=== PATIENT | female | born 1955 | race African-American/Black ===

== ENCOUNTER 2021-05-29 13:44 | Inpatient (IN) | payer MEDICARE, MEDICAID ==
[~2021-05-29] VITALS: Ht 172.7 cm; Wt 68.4 kg
[2021-05-29] MEDS ORDERED: ASPirin 81 mg TAB PO ONE (14:15)
[2021-05-29] MEDS ORDERED: NITROGLYCERIN 0.4 MG SL TAB SL ONE (14:15)
[2021-05-29 14:34] LABS: Basophils # (auto) 0.1 10 ^3/uL (0-0.2); Eosinophils # (auto) 0.2 10 ^3/uL (0-0.8); Eosinophils % (auto) 1.8 % (0.0-7.0); Hemoglobin 13.8 g/dL (12.2-16.2); Mean Corpuscular Hgb Conc. 33.4 g/dL (32.0-36.0); Monocytes # (auto) 0.9 10 ^3/uL (0-1.3); Nucleated Red Blood Cells % 0.2 %; White Blood Cell 9.4 10^3/uL (4.4-10.8)
[2021-05-29 14:36] LABS: Basophils % (auto) 1.2 % (0.0-2.0); Hematocrit 41.4 % (36.0-46.0); Lymphocytes # (auto) 3.2 10 ^3/uL (0.4-5.4); Lymphocytes % (auto) 33.9 % (10.0-50.0); Mean Corpuscular Hemoglobin 34.3 pg (28.0-32.0); Mean Corpuscular Volume 102.6 fL (80.0-100.0); Monocytes % (auto) 9.8 % (0.0-12.0); Neutrophils % (auto) 53.3 % (37.0-80.0); Red Blood Cells 4.03 10^6/uL (4.0-5.20)
[2021-05-29] MEDS ORDERED: SUCCINYLCHOLINE CHLORIDE 20 MG/ML 10ML VIAL IV ONE (14:51)
[2021-05-29] MEDS ORDERED: ETOMIDATE (2MG/ML) 20ML VIAL IV ONE (14:51)
[2021-05-29 14:52] LABS: Potassium 3.3 mmol/L (3.5-5.1)
[2021-05-29] MEDS ORDERED: MIDAZOLAM DRIP 50 mg/50mL 50 ML IV ONE ×3 (14:52→17:51)
[2021-05-29 14:59] LABS: Albumin 3.3 g/dL (3.4-5.0); Bilirubin, Total 0.2 mg/dL (0.2-1.0); Calcium 8.9 mg/dL (8.5-10.1); Total Protein 8.4 g/dL (6.4-8.2)
[2021-05-29 15:00] LABS: INR 1.01 (0.9-1.15); Partial Thromboplastin Time 29.7 sec (23.6-33.0)
[2021-05-29] MEDS ORDERED: AMIODARONE 450mg/250ml AE 250 ML IV ONE (15:04)
[2021-05-29] MEDS ORDERED: SODIUM BICARBONATE 8.4% INJ 50ML SYRINGE ONE (15:16)
[2021-05-29] MEDS ORDERED: SODIUM BICARBONATE 50ML VIAL 100 ML in D5W 5% 1,000 ML IV ONE (15:30)
[2021-05-29] MEDS ORDERED: EPINEPHrine HCL 250 ML IV SCH (15:30)
[2021-05-29] MEDS: PROPOFOL 100 ML IV SCH (16:15)
[2021-05-29] MEDS ORDERED: AMIODARONE 450mg/250ml AE 250 ML IV SCH ×2 (16:30→22:30)
[2021-05-29] MEDS ORDERED: cefTRIAXone 1GM/50ML D5W 50 ML IV ONE (17:15)
[2021-05-29] MEDS ORDERED: AZITHROMYCIN 500MG/ 250ML 250 ML IV ONE (17:15)
[2021-05-29 17:23] LABS: Urine Bacteria NONE SEEN /hpf (None Seen); Urine Blood 1+ /uL (Negative); Urine Specific Gravity 1.008 (1.001-1.035); Urine WBC 4 /hpf (0 - 5)
[2021-05-29] MEDS ORDERED: MORPHINE SULFATE INJECTION 2 MG/ML SYRG IV PRN ×3 (17:30→20:15)
[2021-05-29] MEDS ORDERED: NITROGLYCERIN 0.4 MG SL TAB SL PRN ×2 (17:30→20:15)
[2021-05-29 17:48] VITALS: BP 148/89
[2021-05-29] MEDS: MIDAZOLAM DRIP 50 mg/50mL 50 ML IV SCH (18:26)
[2021-05-29 19:09] LABS: Lactic Acid w/Reflex 6.5 mmol/L (0.4-2.0)
[2021-05-29] MEDS ORDERED: ENOXAPARIN SOD 80 MG/0.8ML SYRINGE SC ONE (19:45)
[2021-05-29] MEDS ORDERED: POTASSIUM CHL 20MEQ/100ML 100 ML IV ONE (20:00)
[2021-05-29] MEDS ORDERED: MAGNESIUM SULFATE 1GM/100ML 100 ML IV ONE (20:00)
[2021-05-29 20:02] LABS: Amphetamine Screen, Urine NEGATIVE (NEGATIVE); Barbiturate Scree,Urine NEGATIVE (NEGATIVE); Benzodiazephine Screen, Urine POSITIVE (NEGATIVE); Cannabinoid Screen, Urine NEGATIVE (NEGATIVE); Cocaine Screen, Urine NEGATIVE (NEGATIVE); Phencyclidine Screen, Urine NEGATIVE (NEGATIVE)
[2021-05-29 20:09] LABS: Opiate Scree,Urine NEGATIVE (NEGATIVE)
[2021-05-29] MEDS ORDERED: hydrALAZINE HCL 20 MG/ML VL IV PRN (20:15)
[2021-05-29] MEDS ORDERED: LORazepam 0.5 MG TAB PO PRN (20:15)
[2021-05-29] MEDS ORDERED: METOCLOPRAMIDE HCL 5MG/ml INJ 2ml VIAL IV PRN (20:15)
[2021-05-29] MEDS ORDERED: DOCUSATE SOD 100 MG CAP PO PRN (20:15)
[2021-05-29] MEDS ORDERED: D5W/SOD CHLO 0.9% 1,000 ML IV SCH (20:15)
[2021-05-29] MEDS ORDERED: VANCOMYCIN PER PHARMACY 0 MG IV SCH (20:15)
[2021-05-29] MEDS ORDERED: HYDROcodone-ACET 5/325MG TAB PO PRN (20:15)
[2021-05-29] MEDS ORDERED: ALUM & MAG HYDROX-SIMETH LIQ(MAALOX) 30 ML PO PRN (20:15)
[2021-05-29] MEDS ORDERED: PIPERACILLIN-TAZOB 3.375GM 100 ML IV ONE (20:45)
[2021-05-29] MEDS ORDERED: VANCOMYCIN 1GM/250ML 250 ML IV SCH (21:00)
[2021-05-29] MEDS ORDERED: IPRATROPIUM BROM 0.5 MG/2.5ML INH SOL NEB PRN (21:15)
[2021-05-29 21:32] VITALS: BP 163/101
[2021-05-29] MEDS ORDERED: IPRATROPIUM BROM 0.5 MG/2.5ML INH SOL NEB SCH (22:00)
[2021-05-29] MEDS ORDERED: ALBUTEROL SULF 2.5 MG/0.5ML(0.5%) NEB SOLN NEB SCH (22:00)
[2021-05-29] MEDS: fentaNYL Drip 2500mCg/250mlNS 250 ML IV SCH (22:07)
[2021-05-29] MEDS: VANCOMYCIN 1GM/250ML 250 ML IV SCH (22:24)
[2021-05-29] MEDS: methylPREDNISolone SOD SUCC 40 MG/ML VL IV SCH (22:25)
[2021-05-29 23:17] VITALS: BP 163/101
[2021-05-29 23:58] VITALS: BP 139/84
[2021-05-30] VITALS (79 sets, daily range): BP systolic 83–155; BP diastolic 53–96
[2021-05-30] MEDS: methylPREDNISolone SOD SUCC 40 MG/ML VL IV SCH (06:09)
[2021-05-30] MEDS: PIPERACILLIN-TAZOB 3.375GM 100 ML IV SCH ×3 (06:09→17:53)
[2021-05-30 09:02] LABS: Basophils # (auto) 0 10 ^3/uL (0-0.2); Eosinophils # (auto) 0 10 ^3/uL (0-0.8); Mean Corpuscular Volume 102.1 fL (80.0-100.0); Nucleated Red Blood Cells % 0.2 %
[2021-05-30 09:03] LABS: Basophils % (auto) 0.2 % (0.0-2.0); Hematocrit 35.2 % (36.0-46.0); Hemoglobin 11.8 g/dL (12.2-16.2); Lymphocytes # (auto) 0.8 10 ^3/uL (0.4-5.4); Lymphocytes % (auto) 4.4 % (10.0-50.0); Mean Corpuscular Hemoglobin 34.2 pg (28.0-32.0); Mean Corpuscular Hgb Conc. 33.5 g/dL (32.0-36.0); Monocytes # (auto) 0.4 10 ^3/uL (0-1.3); Monocytes % (auto) 2.2 % (0.0-12.0); Neutrophils % (auto) 93.2 % (37.0-80.0); Red Blood Cells 3.45 10^6/uL (4.0-5.20); Red Cell Distribution Width 14.1 % (11.8-14.3); White Blood Cell 19.3 10^3/uL (4.4-10.8)
[2021-05-30 09:17] LABS: Albumin 2.1 g/dL (3.4-5.0); Calcium 7.3 mg/dL (8.5-10.1); Magnesium 2.3 mg/dL (1.6-2.6); Potassium 4.2 mmol/L (3.5-5.1); Uric Acid 3.7 mg/dL (2.6-6.0)
[2021-05-30 09:22] LABS: BUN/Creatinine Ratio 12.3; Bilirubin, Total 0.5 mg/dL (0.2-1.0); Phosphorus 2.5 mg/dL (2.5-4.90); Total Protein 5.8 g/dL (6.4-8.2)
[2021-05-30 09:29] LABS: CRP High Sensitivity 3.07 mg/dL (< 0.3)
[2021-05-30 09:46] LABS: INR 1.11 (0.9-1.15)
[2021-05-30] MEDS: VANCOMYCIN 1GM/250ML 250 ML IV SCH (09:47)
[2021-05-30] MEDS: ENOXAPARIN SOD 80 MG/0.8ML SYRINGE SC SCH ×2 (09:47→22:40)
[2021-05-30] MEDS: CLOPIDOGREL 300 MG TAB PO ONE ×2 (09:47→11:36)
[2021-05-30] MEDS: NOREPINEPHRINE 8 MG/250ML KIT 250 ML IV SCH (11:07)
[2021-05-30] MEDS: MIDAZOLAM DRIP 50 mg/50mL 50 ML IV SCH (11:08)
[2021-05-30 11:31] LABS: Free T3 1.96 pg/mL (2.3-4.2); Free T4 (Free Thyroxine) 0.81 ng/dL (0.89-1.76)
[2021-05-30] MEDS: fentaNYL Drip 2500mCg/250mlNS 250 ML IV SCH (14:00)
[2021-05-30] MEDS ORDERED: THIAMINE 100mg/ml INJ (200mg/2ml VIAL) IV ONE (15:00)
[2021-05-30] MEDS ORDERED: FOLIC ACID 1 MG in D5W 5% 50 ML INJ ONE (15:00)
[2021-05-30] MEDS ORDERED: PANTOPRAZOLE 40 MG/10 ML VIAL INJ IV ONE (15:00)
[2021-05-30] MEDS: PROPOFOL 100 ML IV SCH (16:15)
[2021-05-30] MEDS ORDERED: SODIUM BICARBONATE 8.4% INJ 50ML SYRINGE IV ONE (21:46)
[2021-05-30] MEDS ORDERED: AMIODARONE HCL (50 MG/ ML) 3 ML VIAL IV ONE (21:46)
[2021-05-30] MEDS ORDERED: EPINEPHrine HCL 1 MG/10 ML SYRG IV ONE (21:46)
[2021-05-30] MEDS: ATORVASTATIN 20 MG TAB PO SCH (22:40)
[2021-05-31] VITALS (93 sets, daily range): BP systolic 96–191; BP diastolic 43–110
[2021-05-31] MEDS: PIPERACILLIN-TAZOB 3.375GM 100 ML IV SCH ×5 (06:00→23:38)
[2021-05-31 07:11] LABS: Basophils # (auto) 0 10 ^3/uL (0-0.2); Basophils % (auto) 0.2 % (0.0-2.0); Eosinophils # (auto) 0 10 ^3/uL (0-0.8); Lymphocytes # (auto) 1.1 10 ^3/uL (0.4-5.4); Neutrophils # (auto) 17.4 10 ^3/uL (1.6-8.6); White Blood Cell 19.5 10^3/uL (4.4-10.8)
[2021-05-31 07:14] LABS: Hematocrit 34.2 % (36.0-46.0); Hemoglobin 11.4 g/dL (12.2-16.2); Lymphocytes % (auto) 5.9 % (10.0-50.0); Mean Corpuscular Hemoglobin 34.5 pg (28.0-32.0); Mean Corpuscular Hgb Conc. 33.4 g/dL (32.0-36.0); Mean Corpuscular Volume 103.2 fL (80.0-100.0); Monocytes % (auto) 4.9 % (0.0-12.0); Red Blood Cells 3.32 10^6/uL (4.0-5.20); Red Cell Distribution Width 13.9 % (11.8-14.3)
[2021-05-31 07:25] LABS: BUN/Creatinine Ratio 16.2; Calcium 7.6 mg/dL (8.5-10.1); Potassium 3.5 mmol/L (3.5-5.1)
[2021-05-31 07:47] LABS: INR 1.04 (0.9-1.15); Partial Thromboplastin Time 35.9 sec (23.6-33.0)
[2021-05-31] MEDS: NOREPINEPHRINE 8 MG/250ML KIT 250 ML IV SCH (08:15)
[2021-05-31] MEDS: ENOXAPARIN SOD 80 MG/0.8ML SYRINGE SC SCH ×2 (10:00→22:04)
[2021-05-31] MEDS: FOLIC ACID 1 MG in D5W 5% 50 ML INJ SCH (10:20)
[2021-05-31] MEDS: PANTOPRAZOLE 40 MG/10 ML VIAL INJ IV SCH (10:20)
[2021-05-31] MEDS: CLOPIDOGREL BISULFATE 75 MG TAB PO SCH (10:20)
[2021-05-31] MEDS: THIAMINE 100mg/ml INJ (200mg/2ml VIAL) IV SCH (10:56)
[2021-05-31] MEDS: MIDAZOLAM DRIP 50 mg/50mL 50 ML IV SCH (13:45)
[2021-05-31] MEDS ORDERED: IODIXANOL 320MG/ML 100ML BTL IV ONE (13:46)
[2021-05-31] MEDS ORDERED: LIDOCAINE 2%HCL (LOCAL ANESTH.) INJ 20ML MDV ONE (13:46)
[2021-05-31] MEDS ORDERED: VERAPAMIL 2.5MG/ML INJ 2ML VIAL IV ONE (14:20)
[2021-05-31] MEDS ORDERED: HEPARIN SODIUM (PORCINE) 5000 UNITS/ML 1ML VIAL ONE (14:21)
[2021-05-31] MEDS: PROPOFOL 100 ML IV SCH (16:15)
[2021-05-31] MEDS: fentaNYL Drip 2500mCg/250mlNS 250 ML IV SCH ×2 (16:15→22:46)
[2021-05-31] MEDS: FUROSEMIDE 40 MG/4 ML VIAL IV SCH (17:29)
[2021-05-31] MEDS: chlordiazePOXIDE HCL 25 MG CAP PO SCH (17:29)
[2021-05-31] MEDS: ACETAMINOPHEN 325 MG TAB PO PRN (22:01)
[2021-05-31] MEDS: ATORVASTATIN 20 MG TAB PO SCH (22:02)
[2021-06-01] VITALS (83 sets, daily range): BP systolic 96–158; BP diastolic 55–123
[2021-06-01] MEDS: chlordiazePOXIDE HCL 25 MG CAP PO SCH ×4 (00:19→21:11)
[2021-06-01] MEDS: MIDAZOLAM DRIP 50 mg/50mL 50 ML IV SCH ×3 (01:06→21:53)
[2021-06-01 04:43] LABS: Basophils # (auto) 0.1 10 ^3/uL (0-0.2); Basophils % (auto) 0.6 % (0.0-2.0); Eosinophils # (auto) 0 10 ^3/uL (0-0.8); Eosinophils % (auto) 0.4 % (0.0-7.0); Hematocrit 32.6 % (36.0-46.0); Hemoglobin 11.1 g/dL (12.2-16.2); Lymphocytes # (auto) 1.6 10 ^3/uL (0.4-5.4); Lymphocytes % (auto) 14.1 % (10.0-50.0); Mean Corpuscular Hemoglobin 33.9 pg (28.0-32.0); Mean Corpuscular Hgb Conc. 33.9 g/dL (32.0-36.0); Mean Corpuscular Volume 99.9 fL (80.0-100.0); Monocytes # (auto) 0.5 10 ^3/uL (0-1.3); Monocytes % (auto) 4.4 % (0.0-12.0); Neutrophils # (auto) 9.3 10 ^3/uL (1.6-8.6); Neutrophils % (auto) 80.5 % (37.0-80.0); Nucleated Red Blood Cells % 0.2 %; Red Blood Cells 3.26 10^6/uL (4.0-5.20); Red Cell Distribution Width 13.6 % (11.8-14.3); White Blood Cell 11.6 10^3/uL (4.4-10.8)
[2021-06-01 04:49] LABS: Calcium 7.6 mg/dL (8.5-10.1)
[2021-06-01] MEDS: FUROSEMIDE 40 MG/4 ML VIAL IV SCH ×2 (05:33→21:28)
[2021-06-01] MEDS: PIPERACILLIN-TAZOB 3.375GM 100 ML IV SCH ×3 (05:33→21:10)
[2021-06-01] MEDS: NOREPINEPHRINE 8 MG/250ML KIT 250 ML IV SCH (08:15)
[2021-06-01] MEDS: POTASSIUM CHL 20MEQ/100ML 100 ML IV SCH ×2 (08:54→11:25)
[2021-06-01] MEDS: PANTOPRAZOLE 40 MG/10 ML VIAL INJ IV SCH (08:55)
[2021-06-01] MEDS: ENOXAPARIN SOD 80 MG/0.8ML SYRINGE SC SCH (08:55)
[2021-06-01] MEDS: THIAMINE 100mg/ml INJ (200mg/2ml VIAL) IV SCH (08:56)
[2021-06-01] MEDS: CLOPIDOGREL BISULFATE 75 MG TAB PO SCH (11:41)
[2021-06-01] MEDS: FOLIC ACID 1 MG in D5W 5% 50 ML INJ SCH (11:43)
[2021-06-01] MEDS: PROPOFOL 100 ML IV SCH (11:44)
[2021-06-01] MEDS ORDERED: TICAGRELOR 90 MG TAB PO ONE (15:45)
[2021-06-01] MEDS: ATORVASTATIN 20 MG TAB PO SCH (21:35)
[2021-06-02] VITALS (98 sets, daily range): BP systolic 91–165; BP diastolic 56–92
[2021-06-02] MEDS: MIDAZOLAM DRIP 50 mg/50mL 50 ML IV SCH ×4 (02:05→08:53)
[2021-06-02] MEDS: PIPERACILLIN-TAZOB 3.375GM 100 ML IV SCH ×2 (02:19→09:43)
[2021-06-02] MEDS: fentaNYL Drip 2500mCg/250mlNS 250 ML IV SCH ×2 (03:22→14:27)
[2021-06-02 04:26] LABS: Basophils # (auto) 0 10 ^3/uL (0-0.2); Monocytes # (auto) 0.6 10 ^3/uL (0-1.3); White Blood Cell 10.9 10^3/uL (4.4-10.8)
[2021-06-02 04:33] LABS: Basophils % (auto) 0.3 % (0.0-2.0); Eosinophils # (auto) 0.2 10 ^3/uL (0-0.8); Eosinophils % (auto) 1.6 % (0.0-7.0); Hematocrit 34.5 % (36.0-46.0); Hemoglobin 11.9 g/dL (12.2-16.2); Lymphocytes # (auto) 1.3 10 ^3/uL (0.4-5.4); Lymphocytes % (auto) 11.8 % (10.0-50.0); Mean Corpuscular Hemoglobin 34.4 pg (28.0-32.0); Mean Corpuscular Hgb Conc. 34.4 g/dL (32.0-36.0); Monocytes % (auto) 5.6 % (0.0-12.0); Neutrophils # (auto) 8.8 10 ^3/uL (1.6-8.6); Neutrophils % (auto) 80.7 % (37.0-80.0); Nucleated Red Blood Cells % 0.1 %; Red Blood Cells 3.45 10^6/uL (4.0-5.20); Red Cell Distribution Width 13.5 % (11.8-14.3)
[2021-06-02] MEDS: chlordiazePOXIDE HCL 25 MG CAP PO SCH ×4 (06:22→23:15)
[2021-06-02] MEDS: FUROSEMIDE 40 MG/4 ML VIAL IV SCH (06:22)
[2021-06-02 08:00] LABS: Anion Gap 17 (5-15); BUN/Creatinine Ratio 16.5; Blood Urea Nitrogen 16 mg/dL (7-18); Carbon Dioxide 20 mmol/L (21-32); Chloride 104 mmol/L (98-107); GFR African American 74 mL/min; GFR Non-African American 61 mL/min; Glucose 81 mg/dL (74-106); Magnesium 2.3 mg/dL (1.6-2.6); Potassium 3.5 mmol/L (3.5-5.1); Sodium 141 mmol/L (136-145)
[2021-06-02] MEDS: NOREPINEPHRINE 8 MG/250ML KIT 250 ML IV SCH (08:15)
[2021-06-02] MEDS: PANTOPRAZOLE 40 MG/10 ML VIAL INJ IV SCH (09:42)
[2021-06-02] MEDS: TICAGRELOR 90 MG TAB PO SCH ×2 (09:43→23:14)
[2021-06-02] MEDS: THIAMINE 100mg/ml INJ (200mg/2ml VIAL) IV SCH (09:43)
[2021-06-02] MEDS ORDERED: ENOXAPARIN SOD 80 MG/0.8ML SYRINGE SC SCH (10:00)
[2021-06-02] MEDS: ACETAMINOPHEN 325 MG TAB PO PRN ×2 (11:00→12:49)
[2021-06-02] MEDS ORDERED: VANCOMYCIN PER PHARMACY 0 MG IV SCH (11:45)
[2021-06-02] MEDS: FOLIC ACID 1 MG in D5W 5% 50 ML INJ SCH (12:39)
[2021-06-02] MEDS ORDERED: LIDOCAINE 1% (LOCAL ANESTH.) PF 5ml SDV ID ONE (13:30)
[2021-06-02] MEDS: VANCOMYCIN 750mg/250ml 250 ML IV SCH (14:41)
[2021-06-02] MEDS: PROPOFOL 100 ML IV SCH (16:15)
[2021-06-02] MEDS: SODIUM CHLOR 0.9% PF (SALINE LOCK) 10ML VIAL/SYR IV SCH (23:14)
[2021-06-02] MEDS: ATORVASTATIN 20 MG TAB PO SCH (23:15)
[2021-06-03] VITALS (78 sets, daily range): BP systolic 84–163; BP diastolic 36–106
[2021-06-03] MEDS: VANCOMYCIN 750mg/250ml 250 ML IV SCH ×2 (00:57→13:00)
[2021-06-03 03:31] LABS: Hemoglobin 11.3 g/dL (12.2-16.2); Monocytes # (auto) 0.6 10 ^3/uL (0-1.3); Neutrophils # (auto) 8.8 10 ^3/uL (1.6-8.6); Nucleated Red Blood Cells % 0.1 %; Red Blood Cells 3.33 10^6/uL (4.0-5.20)
[2021-06-03 03:32] LABS: Basophils # (auto) 0 10 ^3/uL (0-0.2); Basophils % (auto) 0.4 % (0.0-2.0); Eosinophils # (auto) 0.3 10 ^3/uL (0-0.8); Eosinophils % (auto) 2.7 % (0.0-7.0); Lymphocytes # (auto) 1.1 10 ^3/uL (0.4-5.4); Mean Corpuscular Hgb Conc. 34.2 g/dL (32.0-36.0); Mean Corpuscular Volume 99.4 fL (80.0-100.0); Monocytes % (auto) 5.6 % (0.0-12.0); Neutrophils % (auto) 81.3 % (37.0-80.0); Red Cell Distribution Width 13.1 % (11.8-14.3); White Blood Cell 10.9 10^3/uL (4.4-10.8)
[2021-06-03 03:50] LABS: Albumin 2.1 g/dL (3.4-5.0); BUN/Creatinine Ratio 21.3; Calcium 7.9 mg/dL (8.5-10.1)
[2021-06-03 03:53] LABS: Bilirubin, Total 0.8 mg/dL (0.2-1.0)
[2021-06-03 04:52] LABS: Potassium 2.3 mmol/L (3.5-5.1)
[2021-06-03] MEDS: chlordiazePOXIDE HCL 25 MG CAP PO SCH ×3 (06:42→17:45)
[2021-06-03] MEDS: POTASSIUM CHL 20MEQ/100ML 100 ML IV SCH ×3 (07:34→10:00)
[2021-06-03] MEDS: NOREPINEPHRINE 8 MG/250ML KIT 250 ML IV SCH (08:15)
[2021-06-03] MEDS: cefTRIAXone 1GM/50ML D5W 50 ML IV SCH (08:48)
[2021-06-03] MEDS ORDERED: levoFLOXacin 500MG 100 ML IV SCH (10:00)
[2021-06-03] MEDS: TICAGRELOR 90 MG TAB PO SCH ×2 (10:00→21:38)
[2021-06-03] MEDS: FOLIC ACID 1 MG in D5W 5% 50 ML INJ SCH (10:00)
[2021-06-03] MEDS: SODIUM CHLOR 0.9% PF (SALINE LOCK) 10ML VIAL/SYR IV SCH ×2 (10:00→21:38)
[2021-06-03] MEDS: PANTOPRAZOLE 40 MG/10 ML VIAL INJ IV SCH (10:00)
[2021-06-03] MEDS: ENOXAPARIN SOD 40 MG/0.4 ML SYRINGE SC SCH (10:02)
[2021-06-03] MEDS: FUROSEMIDE 20 MG/2 ML VIAL IV SCH (10:02)
[2021-06-03] MEDS: THIAMINE 100mg/ml INJ (200mg/2ml VIAL) IV SCH (10:02)
[2021-06-03] MEDS: ALBUTEROL SULF 2.5 MG/0.5ML(0.5%) NEB SOLN NEB PRN (11:30)
[2021-06-03] MEDS: ATORVASTATIN 20 MG TAB PO SCH (21:38)
[2021-06-04] VITALS (18 sets, daily range): BP systolic 103–162; BP diastolic 60–107
[2021-06-04] MEDS: VANCOMYCIN 750mg/250ml 250 ML IV SCH ×2 (01:00→12:51)
[2021-06-04] MEDS: chlordiazePOXIDE HCL 25 MG CAP PO SCH ×4 (01:11→17:35)
[2021-06-04 04:12] LABS: Basophils # (auto) 0 10 ^3/uL (0-0.2); Basophils % (auto) 0.2 % (0.0-2.0); Eosinophils # (auto) 0.1 10 ^3/uL (0-0.8); Eosinophils % (auto) 0.9 % (0.0-7.0); Hematocrit 34.4 % (36.0-46.0); Hemoglobin 11.4 g/dL (12.2-16.2); Lymphocytes % (auto) 6.5 % (10.0-50.0); Mean Corpuscular Hemoglobin 33.3 pg (28.0-32.0); Mean Corpuscular Hgb Conc. 33.3 g/dL (32.0-36.0); Monocytes # (auto) 1.3 10 ^3/uL (0-1.3); Neutrophils # (auto) 12.5 10 ^3/uL (1.6-8.6); Neutrophils % (auto) 83.4 % (37.0-80.0); Nucleated Red Blood Cells % 0.2 %; Red Blood Cells 3.43 10^6/uL (4.0-5.20)
[2021-06-04 04:27] LABS: GFR African American 86 mL/min; GFR Non-African American 71 mL/min; Potassium 3.5 mmol/L (3.5-5.1)
[2021-06-04] MEDS ORDERED: hydrALAZINE HCL 20 MG/ML VL ONE (05:37)
[2021-06-04] MEDS: hydrALAZINE HCL 20 MG/ML VL IV PRN (06:04)
[2021-06-04] MEDS: NOREPINEPHRINE 8 MG/250ML KIT 250 ML IV SCH (07:58)
[2021-06-04 08:11] LABS: Anion Gap 18 (5-15); BUN/Creatinine Ratio 16.5; Blood Urea Nitrogen 14 mg/dL (7-18); Calcium 8.2 mg/dL (8.5-10.1); Carbon Dioxide 16 mmol/L (21-32); Chloride 101 mmol/L (98-107); Glucose 79 mg/dL (74-106); Sodium 135 mmol/L (136-145)
[2021-06-04] MEDS: cefTRIAXone 1GM/50ML D5W 50 ML IV SCH (09:15)
[2021-06-04] MEDS: THIAMINE 100mg/ml INJ (200mg/2ml VIAL) IV SCH (10:02)
[2021-06-04] MEDS: FUROSEMIDE 20 MG/2 ML VIAL IV SCH (10:02)
[2021-06-04] MEDS: FOLIC ACID 1 MG in D5W 5% 50 ML INJ SCH (10:02)
[2021-06-04] MEDS: ENOXAPARIN SOD 40 MG/0.4 ML SYRINGE SC SCH (10:03)
[2021-06-04] MEDS: PANTOPRAZOLE 40 MG/10 ML VIAL INJ IV SCH (10:03)
[2021-06-04] MEDS: SODIUM CHLOR 0.9% PF (SALINE LOCK) 10ML VIAL/SYR IV SCH ×2 (10:03→22:02)
[2021-06-04] MEDS: TICAGRELOR 90 MG TAB PO SCH ×2 (10:03→22:02)
[2021-06-04] MEDS ORDERED: POTASSIUM EFFERVESENT TAB 25 MEQ GT ONE (11:30)
[2021-06-04] MEDS ORDERED: METOPROLOL TARTRATE 25 MG TAB PO ONE (11:30)
[2021-06-04] MEDS: METOPROLOL TARTRATE 25 MG TAB PO SCH (22:02)
[2021-06-04] MEDS: ATORVASTATIN 20 MG TAB PO SCH (22:02)
[2021-06-05] MEDS ORDERED: LORazepam 2MG/ML-1ML VIAL ONE (00:13)
[2021-06-05] MEDS ORDERED: LORazepam 2MG/ML-1ML VIAL IV PRN (00:15)
[2021-06-05] MEDS: VANCOMYCIN 750mg/250ml 250 ML IV SCH ×2 (01:00→13:58)
[2021-06-05] MEDS: chlordiazePOXIDE HCL 25 MG CAP PO SCH ×2 (01:22→07:34)
[2021-06-05 05:00] VITALS: BP 150/73
[2021-06-05 06:28] LABS: Calcium 8.6 mg/dL (8.5-10.1); Magnesium 2.3 mg/dL (1.6-2.6); Potassium 3.6 mmol/L (3.5-5.1)
[2021-06-05 06:30] LABS: BUN/Creatinine Ratio 15.5
[2021-06-05 06:32] LABS: Eosinophils # (auto) 0.2 10 ^3/uL (0-0.8); Red Cell Distribution Width 13.3 % (11.8-14.3)
[2021-06-05 06:34] LABS: Basophils # (auto) 0.2 10 ^3/uL (0-0.2); Basophils % (auto) 0.8 % (0.0-2.0); Eosinophils % (auto) 0.8 % (0.0-7.0); Hematocrit 37.5 % (36.0-46.0); Lymphocytes # (auto) 1.2 10 ^3/uL (0.4-5.4); Lymphocytes % (auto) 6.4 % (10.0-50.0); Mean Corpuscular Hemoglobin 34.5 pg (28.0-32.0); Mean Corpuscular Hgb Conc. 34.5 g/dL (32.0-36.0); Mean Corpuscular Volume 100.1 fL (80.0-100.0); Monocytes # (auto) 1.8 10 ^3/uL (0-1.3); Monocytes % (auto) 9.4 % (0.0-12.0); Neutrophils # (auto) 15.4 10 ^3/uL (1.6-8.6); Neutrophils % (auto) 82.6 % (37.0-80.0); Nucleated Red Blood Cells % 0.1 %; Red Blood Cells 3.75 10^6/uL (4.0-5.20); White Blood Cell 18.6 10^3/uL (4.4-10.8)
[2021-06-05 09:22] VITALS: BP 128/80
[2021-06-05] MEDS: cefTRIAXone 1GM/50ML D5W 50 ML IV SCH (09:42)
[2021-06-05] MEDS: THIAMINE 100mg/ml INJ (200mg/2ml VIAL) IV SCH (10:02)
[2021-06-05] MEDS: FUROSEMIDE 20 MG/2 ML VIAL IV SCH (10:03)
[2021-06-05] MEDS: PANTOPRAZOLE 40 MG/10 ML VIAL INJ IV SCH (10:03)
[2021-06-05] MEDS: SODIUM CHLOR 0.9% PF (SALINE LOCK) 10ML VIAL/SYR IV SCH ×2 (10:04→22:00)
[2021-06-05] MEDS: TICAGRELOR 90 MG TAB PO SCH ×2 (10:04→22:00)
[2021-06-05] MEDS: ENOXAPARIN SOD 40 MG/0.4 ML SYRINGE SC SCH (10:05)
[2021-06-05] MEDS: METOPROLOL TARTRATE 25 MG TAB PO SCH ×2 (10:05→22:00)
[2021-06-05] MEDS ORDERED: chlordiazePOXIDE HCL 25 MG CAP PO PRN (12:15)
[2021-06-05] MEDS ORDERED: levoFLOXacin 500MG 100 ML IV ONE (12:15)
[2021-06-05] MEDS: FOLIC ACID 1 MG in D5W 5% 50 ML INJ SCH (12:18)
[2021-06-05 13:00] VITALS: BP 153/74
[2021-06-05 16:53] VITALS: BP 132/70
[2021-06-05 22:00] VITALS: BP 108/65
[2021-06-05] MEDS: SACUBITRIL-VALSARTAN 24mg/26mg TAB PO SCH (22:00)
[2021-06-05] MEDS: ATORVASTATIN 20 MG TAB PO SCH (22:00)
[2021-06-06] MEDS: VANCOMYCIN 750mg/250ml 250 ML IV SCH ×2 (01:23→12:21)
[2021-06-06 05:56] VITALS: BP 104/87
[2021-06-06 07:42] LABS: Monocytes # (auto) 1.7 10 ^3/uL (0-1.3); Monocytes % (auto) 11.2 % (0.0-12.0); White Blood Cell 14.9 10^3/uL (4.4-10.8)
[2021-06-06 07:44] LABS: Basophils # (auto) 0.1 10 ^3/uL (0-0.2); Basophils % (auto) 0.9 % (0.0-2.0); Eosinophils # (auto) 0.4 10 ^3/uL (0-0.8); Eosinophils % (auto) 2.5 % (0.0-7.0); Hematocrit 42.6 % (36.0-46.0); Hemoglobin 14.5 g/dL (12.2-16.2); Lymphocytes # (auto) 1.2 10 ^3/uL (0.4-5.4); Mean Corpuscular Hemoglobin 34.2 pg (28.0-32.0); Mean Corpuscular Volume 100.6 fL (80.0-100.0); Neutrophils # (auto) 11.5 10 ^3/uL (1.6-8.6); Neutrophils % (auto) 77.4 % (37.0-80.0); Nucleated Red Blood Cells % 0.2 %; Red Blood Cells 4.23 10^6/uL (4.0-5.20); Red Cell Distribution Width 13.6 % (11.8-14.3)
[2021-06-06 09:00] VITALS: BP 123/74
[2021-06-06] MEDS: SODIUM CHLOR 0.9% PF (SALINE LOCK) 10ML VIAL/SYR IV SCH ×2 (10:00→23:37)
[2021-06-06] MEDS ORDERED: levoFLOXacin 500MG 100 ML IV SCH (10:00)
[2021-06-06] MEDS: ENOXAPARIN SOD 40 MG/0.4 ML SYRINGE SC SCH (10:36)
[2021-06-06] MEDS: PANTOPRAZOLE 40 MG/10 ML VIAL INJ IV SCH (10:36)
[2021-06-06] MEDS: SACUBITRIL-VALSARTAN 24mg/26mg TAB PO SCH ×2 (10:37→23:37)
[2021-06-06] MEDS: POTASSIUM CHL 20 Meq TABLET PO SCH (10:37)
[2021-06-06] MEDS: FUROSEMIDE 40 MG TAB PO SCH (10:37)
[2021-06-06] MEDS: METOPROLOL TARTRATE 25 MG TAB PO SCH ×2 (10:38→23:38)
[2021-06-06] MEDS: THIAMINE 100mg/ml INJ (200mg/2ml VIAL) IV SCH (10:39)
[2021-06-06] MEDS: TICAGRELOR 90 MG TAB PO SCH ×2 (10:46→23:37)
[2021-06-06] MEDS: FOLIC ACID 1 MG in D5W 5% 50 ML INJ SCH (11:00)
[2021-06-06 12:50] VITALS: BP 109/59
[2021-06-06 16:58] VITALS: BP 118/61
[2021-06-06 22:00] VITALS: BP 123/76
[2021-06-06] MEDS: ATORVASTATIN 20 MG TAB PO SCH (23:37)
[2021-06-06] MEDS: AMOXICILLIN/CLAVUL 875 MG TAB PO SCH (23:37)
[2021-06-07 05:00] VITALS: BP 119/59
[2021-06-07 09:09] VITALS: BP 147/87
[2021-06-07] MEDS: TICAGRELOR 90 MG TAB PO SCH ×2 (10:07→21:49)
[2021-06-07] MEDS: MULTIPLE VITAMINS W/ MINERALS TAB PO SCH (10:07)
[2021-06-07] MEDS: ENOXAPARIN SOD 40 MG/0.4 ML SYRINGE SC SCH (10:07)
[2021-06-07] MEDS: METOPROLOL TARTRATE 25 MG TAB PO SCH ×2 (10:08→21:48)
[2021-06-07] MEDS: AMOXICILLIN/CLAVUL 875 MG TAB PO SCH ×2 (10:08→21:46)
[2021-06-07] MEDS: POTASSIUM CHL 20 Meq TABLET PO SCH (10:08)
[2021-06-07] MEDS: THIAMINE HCL 100 MG TAB PO SCH (10:08)
[2021-06-07] MEDS: FAMOTIDINE 20 MG TAB PO SCH (10:09)
[2021-06-07] MEDS: FUROSEMIDE 40 MG TAB PO SCH (10:09)
[2021-06-07] MEDS: SODIUM CHLOR 0.9% PF (SALINE LOCK) 10ML VIAL/SYR IV SCH ×2 (10:10→22:40)
[2021-06-07] MEDS: SACUBITRIL-VALSARTAN 24mg/26mg TAB PO SCH ×2 (11:29→21:50)
[2021-06-07 13:00] VITALS: BP 103/63
[2021-06-07] MEDS: ALBUTEROL SULF 2.5 MG/0.5ML(0.5%) NEB SOLN NEB PRN (14:05)
[2021-06-07 16:57] VITALS: BP 129/70
[2021-06-07 21:31] VITALS: BP 110/88
[2021-06-07] MEDS: ATORVASTATIN 20 MG TAB PO SCH (21:48)
[2021-06-07 23:21] VITALS: BP 110/88
[2021-06-08 05:00] VITALS: BP 125/70
[2021-06-08 08:00] VITALS: BP 148/94
[2021-06-08] MEDS: THIAMINE HCL 100 MG TAB PO SCH (10:12)
[2021-06-08] MEDS: SACUBITRIL-VALSARTAN 24mg/26mg TAB PO SCH ×2 (10:12→22:14)
[2021-06-08] MEDS: AMOXICILLIN/CLAVUL 875 MG TAB PO SCH ×2 (10:12→22:14)
[2021-06-08] MEDS: ENOXAPARIN SOD 40 MG/0.4 ML SYRINGE SC SCH (10:12)
[2021-06-08] MEDS: MULTIPLE VITAMINS W/ MINERALS TAB PO SCH (10:13)
[2021-06-08] MEDS: FUROSEMIDE 40 MG TAB PO SCH (10:13)
[2021-06-08] MEDS: TICAGRELOR 90 MG TAB PO SCH ×2 (10:13→22:15)
[2021-06-08] MEDS: FAMOTIDINE 20 MG TAB PO SCH (10:13)
[2021-06-08] MEDS: POTASSIUM CHL 20 Meq TABLET PO SCH (10:13)
[2021-06-08] MEDS: METOPROLOL TARTRATE 25 MG TAB PO SCH ×2 (10:14→22:15)
[2021-06-08] MEDS: SODIUM CHLOR 0.9% PF (SALINE LOCK) 10ML VIAL/SYR IV SCH ×2 (10:14→22:23)
[2021-06-08] MEDS: ACETAMINOPHEN 325 MG TAB PO PRN (12:04)
[2021-06-08 12:42] VITALS: BP 101/66
[2021-06-08 16:28] VITALS: BP 98/88
[2021-06-08] MEDS: ALBUTEROL SULF 2.5 MG/0.5ML(0.5%) NEB SOLN NEB PRN (18:58)
[2021-06-08 22:00] VITALS: BP 137/75
[2021-06-08] MEDS: ATORVASTATIN 20 MG TAB PO SCH (22:14)
[2021-06-09] VITALS (7 sets, daily range): BP systolic 123–151; BP diastolic 63–97
[2021-06-09] MEDS: POTASSIUM CHL 20 Meq TABLET PO SCH (10:00)
[2021-06-09] MEDS: ENOXAPARIN SOD 40 MG/0.4 ML SYRINGE SC SCH (10:06)
[2021-06-09] MEDS: MULTIPLE VITAMINS W/ MINERALS TAB PO SCH (10:07)
[2021-06-09] MEDS: THIAMINE HCL 100 MG TAB PO SCH (10:07)
[2021-06-09] MEDS: FAMOTIDINE 20 MG TAB PO SCH (10:07)
[2021-06-09] MEDS: SACUBITRIL-VALSARTAN 24mg/26mg TAB PO SCH ×2 (10:07→22:44)
[2021-06-09] MEDS: FUROSEMIDE 40 MG TAB PO SCH (10:08)
[2021-06-09] MEDS: METOPROLOL TARTRATE 25 MG TAB PO SCH ×2 (10:11→22:45)
[2021-06-09] MEDS: AMOXICILLIN/CLAVUL 875 MG TAB PO SCH ×2 (10:11→22:44)
[2021-06-09] MEDS: SODIUM CHLOR 0.9% PF (SALINE LOCK) 10ML VIAL/SYR IV SCH ×2 (10:12→22:45)
[2021-06-09] MEDS: TICAGRELOR 90 MG TAB PO SCH ×2 (10:13→22:44)
[2021-06-09] MEDS: POTASSIUM EFFERVESENT TAB 25 MEQ PO SCH (17:30)
[2021-06-09] MEDS: hydrALAZINE HCL 20 MG/ML VL IV PRN (17:32)
[2021-06-09] MEDS: ATORVASTATIN 20 MG TAB PO SCH (22:45)
[2021-06-10 06:36] VITALS: BP 142/76
[2021-06-10 09:00] VITALS: BP 113/47
[2021-06-10] MEDS: SACUBITRIL-VALSARTAN 24mg/26mg TAB PO SCH ×2 (09:48→22:00)
[2021-06-10] MEDS: MULTIPLE VITAMINS W/ MINERALS TAB PO SCH (09:48)
[2021-06-10] MEDS: POTASSIUM EFFERVESENT TAB 25 MEQ PO SCH ×2 (09:48→10:00)
[2021-06-10] MEDS: FUROSEMIDE 40 MG TAB PO SCH (09:49)
[2021-06-10] MEDS: ENOXAPARIN SOD 40 MG/0.4 ML SYRINGE SC SCH (09:49)
[2021-06-10] MEDS: TICAGRELOR 90 MG TAB PO SCH ×2 (09:49→22:37)
[2021-06-10] MEDS: AMOXICILLIN/CLAVUL 875 MG TAB PO SCH (09:49)
[2021-06-10] MEDS: METOPROLOL TARTRATE 25 MG TAB PO SCH ×3 (09:50→22:00)
[2021-06-10] MEDS: THIAMINE HCL 100 MG TAB PO SCH (09:50)
[2021-06-10] MEDS: SODIUM CHLOR 0.9% PF (SALINE LOCK) 10ML VIAL/SYR IV SCH ×2 (09:50→22:37)
[2021-06-10] MEDS: FAMOTIDINE 20 MG TAB PO SCH (09:50)
[2021-06-10 13:00] VITALS: BP 121/70
[2021-06-10 16:51] VITALS: BP 126/78
[2021-06-10 22:10] VITALS: BP 96/69
[2021-06-10] MEDS: ATORVASTATIN 20 MG TAB PO SCH (22:37)
[2021-06-11 04:05] VITALS: BP 96/69
[2021-06-11 05:17] VITALS: BP 128/71
[2021-06-11] MEDS: THIAMINE HCL 100 MG TAB PO SCH (09:57)
[2021-06-11] MEDS: SODIUM CHLOR 0.9% PF (SALINE LOCK) 10ML VIAL/SYR IV SCH (09:57)
[2021-06-11] MEDS: TICAGRELOR 90 MG TAB PO SCH (09:57)
[2021-06-11] MEDS: METOPROLOL TARTRATE 25 MG TAB PO SCH (09:58)
[2021-06-11] MEDS: SACUBITRIL-VALSARTAN 24mg/26mg TAB PO SCH (09:58)
[2021-06-11] MEDS: FUROSEMIDE 40 MG TAB PO SCH (09:58)
[2021-06-11] MEDS: MULTIPLE VITAMINS W/ MINERALS TAB PO SCH (09:58)
[2021-06-11] MEDS: ENOXAPARIN SOD 40 MG/0.4 ML SYRINGE SC SCH (09:59)
[2021-06-11] MEDS: FAMOTIDINE 20 MG TAB PO SCH (09:59)
== END 2021-06-11 11:30 | DRG 853 ==
LOC: ER 13:44 → UNDOADMIN 17:26 → TELE 17:26 → ICU WEST 05-30 05:15 → TELE-WESTW 06-04 20:40 → WEST WING 06-10 14:29
PROVIDERS: ADMIT Hospitalist; ATTEND Internal Medicine
PROC: 06HM33Z Insertion of Infusion Device into Right Femoral Vein, Percutaneous Approach (ICD-10-PCS; 2021-05-29)
PROC: 4A143B0 Monitoring of Venous Pressure, Central, Percutaneous Approach (ICD-10-PCS; 2021-05-29)
PROC: 5A12012 Performance of Cardiac Output, Single, Manual (ICD-10-PCS; 2021-05-29)
PROC: 5A1935Z Respiratory Ventilation, Less than 24 Consecutive Hours (ICD-10-PCS; 2021-05-29)
PROC: 5A1955Z Respiratory Ventilation, Greater than 96 Consecutive Hours (ICD-10-PCS; principal; 2021-05-30)
PROC: 0BH17EZ Insertion of Endotracheal Airway into Trachea, Via Natural or Artificial Opening (ICD-10-PCS; 2021-05-30)
PROC: 027034Z Dilation of Coronary Artery, One Artery with Drug-eluting Intraluminal Device, Percutaneous Approach (ICD-10-PCS; 2021-05-31)
PROC: 4A023N7 Measurement of Cardiac Sampling and Pressure, Left Heart, Percutaneous Approach (ICD-10-PCS; 2021-05-31)
PROC: B211YZZ Fluoroscopy of Multiple Coronary Arteries using Other Contrast (ICD-10-PCS; 2021-05-31)
PROC: B215YZZ Fluoroscopy of Left Heart using Other Contrast (ICD-10-PCS; 2021-05-31)
PROC: 02HV33Z Insertion of Infusion Device into Superior Vena Cava, Percutaneous Approach (ICD-10-PCS; 2021-06-02)
DX: A41.9 Sepsis, unspecified organism (principal); I46.9 Cardiac arrest, cause unspecified; J69.0 Pneumonitis due to inhalation of food and vomit; J96.01 Acute respiratory failure with hypoxia; R65.21 Severe sepsis with septic shock; I50.21 Acute systolic (congestive) heart failure; G92.8 Other toxic encephalopathy; I21.4 Non-ST elevation (NSTEMI) myocardial infarction; I49.01 Ventricular fibrillation; N17.0 Acute kidney failure with tubular necrosis; I16.1 Hypertensive emergency; J44.1 Chronic obstructive pulmonary disease with (acute) exacerbation; G93.1 Anoxic brain damage, not elsewhere classified; I47.2 Ventricular tachycardia; J44.0 Chronic obstructive pulmonary disease with (acute) lower respiratory infection; Z20.822 Contact with and (suspected) exposure to COVID-19; E88.09 Other disorders of plasma-protein metabolism, not elsewhere classified; E87.6 Hypokalemia; E78.5 Hyperlipidemia, unspecified; F09 Unspecified mental disorder due to known physiological condition; F10.129 Alcohol abuse with intoxication, unspecified; F17.200 Nicotine dependence, unspecified, uncomplicated; F32.A Depression, unspecified; I11.0 Hypertensive heart disease with heart failure; Z79.899 Other long term (current) drug therapy; Z85.41 Personal history of malignant neoplasm of cervix uteri; Z88.6 Allergy status to analgesic agent; Z90.49 Acquired absence of other specified parts of digestive tract; Z95.5 Presence of coronary angioplasty implant and graft
CPT/HCPCS: 31500; 36415; 36556; 36569; 36600; 70450; 71045; 71046; 71250; 80048; 80053; 80061; 80202; 80307; 81001; 82306; 82805; 83036; 83605; 83735; 83880; 84100; 84132; 84439; 84443; 84481; 84484; 84550; 85025; 85610; 85730; 86141; 87040; 87070; 87081; 87086; 87205; 87426; 92610; 92928; 92950; 93005; 93306; 93458; 93886; 94002; 94003; 94640; 95819; 97110; 97163; 97530; 99152; 99153; 99291; C1874; C9113; G0378; J0330; J0696; J1956; J2250; J2543; J3480; J7060; Q9967